=== PATIENT | female | born 1960 | race Caucasian/White ===

== ENCOUNTER → 2021-10-02 | Outpatient (CLI) | payer OTHER ==
[~2021-10-02] MED LIST: ALBU90OI; CALCIUM 600 +1 EA11 PO; CEPH500 PO; CIPR500 PO; CITA20 PO; CYCL10 PO; Citalopram HBr40 MG PO; DIPH50 PO; HYDACE5 PO; HYDROCHLOROTHIAZIDE; IBUP400 PO; IBUP800 PO; LISI5 PO; Naprosyn500 MG PO; OXYB5 PO; PENVK250 PO; PROC10 PO; QUET200 PO; TRAZ50 PO; Ventolin/Prove6.7 GM; Zofran Odt4 MG SL
[2021-10-02 17:43] LABS: Hematocrit 37.9 % (33.0-51.0); Hemoglobin 13.6 g/dL (11.5-16.0); Mean Corpuscular HGB 32.6 pg (26.0-34.0); Mean Corpuscular HGB Conc 35.9 g/dL (31.5-36.5); Mean Corpuscular Volume 91 fL (80-100); Mean Platelet Volume 11.5 fL (9.1-12.4); Platelet Count 159 K/mm3 (150-400); RDW Coefficient Variation 12.7 % (11.7-14.2); Red Blood Cell Count 4.17 M/mm3 (3.80-5.20); White Blood Cell Count 14.03 K/mm3 (4.00-11.30)
[2021-10-02 17:53] LABS: BAND PERCENT MAN 5 % (0-8); BASOPHILS PERCENT MAN 0 % (0-2); EOSINOPHILS PERCENT MAN 0 % (0-6); LYMPHOCYTES PERCENT MAN 5 % (21-46); MONOCYTES PERCENT MAN 5 % (4-13); NEUTROPHILS ABSOLUTE MAN 12.62 K/mm3 (1.96-9.15); SEG NEUTROPHILS PERCENT MAN 85 % (41-73); TOTAL CELLS COUNTED 100
[2021-10-02 17:55] LABS: Albumin, Blood 3.1 g/dL (3.4-5.0); Albumin/Globulin Ratio 0.6 (0.8-1.8); Bilirubin, Total 0.8 mg/dL (0.1-1.0); Bun/Creatinine Ratio 23.1 (12.0-20.0); Calcium, Blood 8.9 mg/dL (8.5-10.1); Creatinine, Blood 1.08 mg/dL (0.40-1.00); Globulin, Blood 4.8 g/dL (2.2-4.0); Potassium, Blood 3.2 mmol/L (3.5-5.5); Total Protein, Blood 7.9 g/dL (6.4-8.2)
== END | disposition home or self-care (01) ==
LOC: LAB SHORT 17:40
PROVIDERS: Chiropractor
DX: J18.1 Lobar pneumonia, unspecified organism (principal); R06.00 Dyspnea, unspecified
CPT/HCPCS: 80053; 85025; 85379

== ENCOUNTER → 2021-10-04 | Outpatient (CLI) | payer OTHER ==
[2021-10-04 10:40] LABS: BASOPHILS ABSOLUTE AUTO 0.02 K/mm3 (0.00-0.23); BASOPHILS PERCENT AUTO 0 % (0-2); EOSINOPHILS ABSOLUTE AUTO 0.15 K/mm3 (0.00-0.68); EOSINOPHILS PERCENT AUTO 2 % (0-6); Hematocrit 35.6 % (33.0-51.0); Hemoglobin 12.6 g/dL (11.5-16.0); IMMATURE GRAN ABSOLUTE AUTO 0.27 K/mm3 (0.00-0.10); IMMATURE GRAN PERCENT AUTO 3 % (0-1); LYMPHOCYTES ABSOLUTE AUTO 1.13 K/mm3 (0.84-5.20); LYMPHOCYTES PERCENT AUTO 13 % (21-46); MONOCYTES PERCENT AUTO 10 % (4-13); Mean Corpuscular HGB 32.2 pg (26.0-34.0); Mean Corpuscular HGB Conc 35.4 g/dL (31.5-36.5); Mean Corpuscular Volume 91 fL (80-100); NEUTROPHILS PERCENT AUTO 72 % (41-73); Platelet Count 187 K/mm3 (150-400); RDW Coefficient Variation 12.9 % (11.7-14.2); RDW Standard Deviation 42.3 fL (35.1-46.3); Red Blood Cell Count 3.91 M/mm3 (3.80-5.20); White Blood Cell Count 8.67 K/mm3 (4.00-11.30)
[2021-10-04 10:46] LABS: Bun/Creatinine Ratio 20.5 (12.0-20.0); Calcium, Blood 8.6 mg/dL (8.5-10.1); Creatinine, Blood 0.88 mg/dL (0.40-1.00); Potassium, Blood 3.2 mmol/L (3.5-5.5)
== END ==
LOC: LAB SHORT 10:36
PROVIDERS: Physician Assistant
DX: J18.1 Lobar pneumonia, unspecified organism (principal)
CPT/HCPCS: 80048; 85025

== ENCOUNTER → 2022-08-24 | Outpatient (CLI) | payer OTHER | END | disposition home or self-care (01) | LOC: LAB SHORT 10:30 → LAB 10:30 | DX: H60.509 Unspecified acute noninfective otitis externa, unspecified ear (principal) | CPT/HCPCS: 87070; 87077; 87147; 87186; 87205 ==

== ENCOUNTER → 2023-03-10 | Outpatient (CLI) | payer OTHER ==
[2023-03-10 15:04] LABS: Source, Urine Clean Catch
[2023-03-10 18:03] LABS: Appearance, Urine Clear (Clear); Bilirubin, Urine Neg (Neg); Blood, Urine Neg (Neg); Color, Urine Yellow (P-Yellow); Glucose Qualitative, Urine Neg (Neg); Ketones, Urine Neg (Neg); Leukocyte Esterase, Urine 2+ (Neg); Nitrite, Urine Neg (Neg); Protein, Urine Neg (Neg); Specific Gravity, Urine 1.005 (1.003-1.022); Urobilinogen, Urine NORM (Normal)
[2023-03-10 18:15] LABS: Bacteria Many /hpf; Squamous Epithelial Cells Few /hpf (Few)
== END | disposition home or self-care (01) ==
LOC: LAB 11:55 → LAB SHORT 11:55
PROVIDERS: Family Medicine
DX: R32 Unspecified urinary incontinence (principal)
CPT/HCPCS: 81001; 87077; 87086; 87186

== ENCOUNTER → 2023-11-25 | Outpatient (CLI) | payer OTHER | LOC: LAB 18:53 → LAB SHORT 18:53 | DX: R35.0 Frequency of micturition (principal) | CPT/HCPCS: 87077; 87086; 87186 ==

== ENCOUNTER 2024-12-03 21:10 | Emergency (ER) | payer OTHER ==
[~2024-12-03] VITALS: Ht 160 cm; Wt 72.6 kg
[2024-12-03 22:02] VITALS: BP 134/81
[2024-12-04] MEDS ORDERED: Lidocaine 4% 1 Patch TOP ONE (00:55)
[2024-12-04] MEDS ORDERED: Ketorolac Tromethamine 15mg Vial IM ONE (00:55)
== END 2024-12-04 01:59 | disposition home or self-care (01) ==
LOC: ER 21:10
DX: M54.32 Sciatica, left side (principal); F17.200 Nicotine dependence, unspecified, uncomplicated
CPT/HCPCS: 96372; 99283-25; A9270; J1885

== ENCOUNTER → 2025-01-08 | Outpatient (CLI) | payer OTHER ==
[2025-01-09 10:17] LABS: Stool Occult Bld Immuno 1 Negative (NEGATIVE)
== END ==
LOC: LAB SHORT 07:23 → LAB 07:23
PROVIDERS: Family Medicine
DX: Z12.11 Encounter for screening for malignant neoplasm of colon (principal)
CPT/HCPCS: G0328